=== PATIENT | female | born 1990 | race Caucasian/White ===

== ENCOUNTER 2017-11-01 17:40 | Emergency (ER) | payer SELFPAY ==
[~2017-11-01] VITALS: Ht 167.6 cm; Wt 104.3 kg
[2017-11-01 17:50] VITALS: BP 139/82
--- NOTE | 2017-11-01 18:12 | PHYS DOC ---
Adult General Chief Complaint Chief Complaint: OTHER COMPLAINTS HPI HPI Patient is a 26 year old female with history of cold sores who presents today complaining of upper lip swelling that began as blisters and now has grown bigger, patient states the symptoms began 48 hours ago. Review of Systems Review of Systems Constitutional: Denies fever or chills [] Eyes: Denies change in visual acuity, redness, or eye pain [] HENT: Sores to the upper lip. Denies nasal congestion or sore throat [] Respiratory: Denies cough or shortness of breath [] Cardiovascular: No additional information not addressed in HPI [] GI: Denies abdominal pain, nausea, vomiting, bloody stools or diarrhea [] : Denies dysuria or hematuria [] Musculoskeletal: Denies back pain or joint pain [] Integument: Denies rash or skin lesions [] Neurologic: Denies headache, focal weakness or sensory changes [] All other systems were reviewed and found to be within normal limits, except as documented in this note. Allergies Allergies Allergies Coded Allergies Type Severity Reaction Last Updated Verified Penicillins Allergy Intermediate rash 11/01/17 Yes Sulfa (Sulfonamide Antibiotics) Allergy Intermediate rash 11/01/17 Yes Physical Exam Physical Exam Constitutional: Well developed, well nourished, no acute distress, non-toxic appearance. [] HENT: Normocephalic, atraumatic, bilateral external ears normal, oropharynx moist, no oral exudates, nose normal. Exterior upper lip with clustered blisters consistent with cold sores. There is mild swelling on the mid upper lip around the blister areas. Eyes: PERRLA, EOMI, conjunctiva normal, no discharge. [] Neck: Normal range of motion, no tenderness, supple, no stridor. [] Cardiovascular:Heart rate regular rhythm, no murmur [] Lungs & Thorax: Bilateral breath sounds clear to auscultation [] Abdomen: Bowel sounds normal, soft, no tenderness, no masses, no pulsatile masses. [] Skin: Warm, dry, no erythema, no rash. [] Back: No tenderness, no CVA tenderness. [] Extremities: No tenderness, no cyanosis, no clubbing, ROM intact, no edema. [] Neurologic: Alert and oriented X 3, normal motor function, normal sensory function, no focal deficits noted. [] Psychologic: Affect normal, judgement normal, mood normal. [] Current Patient Data Vital Signs Vital Signs Date Time Temp Pulse Resp B/P (MAP) Pulse Ox O2 Delivery O2 Flow Rate FiO2 11/01/17 17:50 98.8 92 18 139/82 (101) 99 Room Air 98.8 EKG EKG [] Radiology/Procedures Radiology/Procedures [] Course & Med Decision Making Course & Med Decision Making Pertinent Labs and Imaging studies reviewed. (See chart for details) This is a 26-year-old female patient presenting to the ED today with cold sores that began 48 hours ago. Patient will be discharged with acyclovir, Abreva, prednisone for 5 days. Follow-up with her own PCP in 1-2 weeks as needed. Dragon Disclaimer Dragon Disclaimer This electronic medical record was generated, in whole or in part, using a voice recognition dictation system. Departure Departure Impression: Primary Impression: Herpes labialis Disposition: HOME, SELF-CARE Condition: STABLE Referrals: UNKNOWN PCP NAME (PCP) Follow-up with your doctor in 1-2 weeks Patient Instructions: Cold Sore, [id number], Herpes Labialis Additional Instructions: You were evaluated in the emergency room for cold sores. Take the medications written as prescribed. Follow-up with your doctor in 1-2 weeks as needed. Scripts Acyclovir (ACYCLOVIR) 800 Mg Tablet 1 TAB PO 5XDAY, #50 TAB Prov: VALERIA AVALOS APRN 11/01/17 Docosanol (ABREVA) 2 Gm Cream..g. 2 GM TP Q2HR W/A, #1 EACH Prov: VALERIA AVALOS APRN 11/01/17 Prednisone (PREDNISONE) 50 Mg Tablet 1 TAB PO DAILY, #5 TAB Prov: VALERIA AVALOS APRN 11/01/17 VALERIA AVALOS APRN Nov 01, 2017 18:12
[2017-11-01] MEDS ORDERED: ACYC800T PO (18:35)
[2017-11-01] MEDS ORDERED: DOCO2CRE TP (18:35)
[2017-11-01] MEDS ORDERED: PRED50TA PO (18:35)
== END 2017-11-01 18:52 | disposition home or self-care (01) ==
LOC: ER 17:40
DX: S00.521A Blister (nonthermal) of lip, initial encounter (principal); B00.9 Herpesviral infection, unspecified; Z88.0 Allergy status to penicillin; Z88.2 Allergy status to sulfonamides; X58.XXXA Exposure to other specified factors, initial encounter; Y93.89 Activity, other specified; Y92.89 Other specified places as the place of occurrence of the external cause; Y99.8 Other external cause status
CPT/HCPCS: 99283